=== PATIENT | male | born 1965 | race Caucasian/White ===

== ENCOUNTER → 2021-05-25 14:54 | Outpatient (CLI) | payer SELFPAY ==
--- NOTE | 2021-05-25 15:01 | CT_ITS ---
PROCEDURE: CT HEART W CALCIUM SCORE CLINICAL HISTORY: eval for cad COMPARISON: No exams were available for comparison TECHNIQUE: Axial images obtained with sagittal and coronal reformats. All CT scans at the facility use one or more dose reduction, viz: automated exposure control, ma/kV adjustment per patient size (including targeted exams where dose is matched to indication, i.e. head), or iterative reconstruction technique. FINDINGS: The coronary artery calcium score is 67 Mild calcific plaque burden with moderate cardiovascular disease risk. Are at least 3 hepatic hypodensities in the left hepatic lobe the largest of which is 1 cm. These are nonspecific and may represent hepatic cysts IMPRESSION: Mild calcific plaque burden with moderate cardiovascular disease risk Dictated by: Javier Fuchs MD 05/25/2021 16:14 Javier Fuchs MD in [facility] 05/25/2021 16:14
== END ==
PROVIDERS: PCP Internal Medicine; Visit Provider Internal Medicine
DX: Z13.6 Encounter for screening for cardiovascular disorders (principal); R00.1 Bradycardia, unspecified; R07.89 Other chest pain; Z82.49 Family history of ischemic heart disease and other diseases of the circulatory system
CPT/HCPCS: 75571